=== PATIENT | female | born 1975 | race American Indian/Alaskan Native ===

== ENCOUNTER 2016-05-31 05:52 | Observation (INO) | payer BC ==
[2016-05-31 06:28] VITALS: BMI 29.2
[2016-05-31 06:30] VITALS: BP 140/92; PULSE 104; RESP 18; TEMP 98.3; O2SAT 100
[2016-05-31] MEDS ORDERED: diaZEpam 10 mg/2 ml Inj IVP ONE ×2 (07:12→07:38)
--- NOTE | 2016-05-31 07:12 | ED PDOC ---
Arrival/HPI - General Historian: Patient - History of Present Illness Time/Duration: Prior to Arrival Symptom Course: Unchanged Quality: Aching, Stabbing <Geo Reyes - Last Filed: 05/31/16 07:04> <Main Painting - Last Filed: 05/31/16 11:06> - General Chief Complaint: Back Pain Time Seen by Provider: 05/31/16 06:40 - History of Present Illness Narrative History of Present Illness (Text): 05/31/16 07:04 40 y/o female with no significant PMH presenting with complaints of left upper thoracic back pain. Patient states pain started suddenly at around 430a today. States pain awoke her from sleep. She states pain radiates distally to lumbar, buttock and lower extremities. Patient has experienced similar symptoms in the past. She was seen here in March, with similar complaints which was eventually relieved with Morphine. Patient is tearful on evaluation stating she is under a great deal of stress as her father was recently diagnosed with renal failure and her mother is recently . Patient denies headache, focal weakness, bowel or bladder incontinence, trauma or injury. (Geo Reyes) Past Medical History - Provider Review Nursing Documentation Reviewed: Yes - Past History Past History: No Previous - Cardiac Hx Cardiac Disorders: No - Pulmonary Hx Respiratory Disorders: No - Neurological Hx Neurological Disorder: No - HEENT Hx HEENT Disorder: No - Renal Hx Renal Disorder: No - Endocrine/Metabolic Hx Endocrine Disorders: No - Hematological/Oncological Hx Blood Disorders: No - Integumentary Hx Dermatological Disorder: No - Musculoskeletal/Rheumatological Hx Musculoskeletal Disorders: No - Gastrointestinal Hx Gastrointestinal Disorders: No - Genitourinary/Gynecological Hx Genitourinary Disorders: No - Psychiatric Hx Psychophysiologic Disorder: No Hx Substance Use: No - Anesthesia Hx Anesthesia: No Hx Anesthesia Reactions: No Hx Malignant Hyperthermia: No <Geo Reyes - Last Filed: 05/31/16 07:04> Family/Social History - Physician Review Nursing Documentation Reviewed: Yes Family/Social History: Neoplasm/Cancer Smoking Status: Current Some Days Smoker Hx Alcohol Use: Yes Frequency of alcohol use: Socially Hx Substance Use: No <Geo Reyes - Last Filed: 05/31/16 07:04> Allergies/Home Meds <Geo Reyes - Last Filed: 05/31/16 07:04> <Main Pain[employer] - Last Filed: 05/31/16 11:06> Allergies/Adverse Reactions: Allergies No Known Allergies Allergy (Verified 05/31/16 06:26) Review of Systems - Physician Review All systems were reviewed & negative as marked: Yes - Review of Systems Constitutional: absent: Fatigue, Fevers Eyes: Normal ENT: Normal Respiratory: absent: SOB, Cough Cardiovascular: absent: Chest Pain, Palpitations Gastrointestinal: absent: Abdominal Pain, Diarrhea, Nausea, Vomiting Musculoskeletal: Back Pain. absent: Arthralgias, Neck Pain, Myalgias Skin: absent: Rash, Pruritis Neurological: absent: Headache, Dizziness, Focal Weakness Psychiatric: Anxiety <Geo Reyes - Last Filed: 05/31/16 07:04> Physical Exam Vital Signs Reviewed: Yes Temperature: Afebrile Blood Pressure: Normal Pulse: Regular Respiratory Rate: Normal Appearance: Positive for: Well-Appearing Pain Distress: Moderate Mental Status: Positive for: Alert and Oriented X 3 - Systems Exam Head: Present: Atraumatic, Normocephalic Pupils: Present: PERRL Extroacular Muscles: Present: EOMI Conjunctiva: Present: Normal Mouth: Present: Moist Mucous Membranes Neck: Present: Normal Range of Motion. No: Meningeal Signs Respiratory/Chest: Present: Clear to Auscultation. No: Wheezes, Rales, Rhonchi Cardiovascular: Present: Regular Rate and Rhythm, Normal S1, S2 Abdomen: Present: Normal Bowel Sounds. No: Tenderness, Distention Back: Present: Normal Inspection, Other (hypertonic paraspinal musculature ). No: Midline Tenderness, Paraspinal Tenderness, Pain with Leg Raise Upper Extremity: Present: Normal Inspection. No: Cyanosis, Edema Lower Extremity: Present: Normal Inspection, NORMAL PULSES, Normal ROM. No: Edema, CALF TENDERNESS, Tenderness Neurological: Present: GCS=15, CN II-XII Intact, Speech Normal Skin: Present: Warm, Dry. No: Rashes Psychiatric: Present: Alert, Oriented x 3, Normal Insight, Normal Concentration , Anxious <Geo Reyes - Last Filed: 05/31/16 07:04> Vital Signs Temp Pulse Resp BP Pulse Ox 05/31/16 06:29 98.3 F 104 H 18 140/92 H 100 Medical Decision Making <Geo Reyes - Last Filed: 05/31/16 07:04> <Main Pain[employer] - Last Filed: 05/31/16 11:06> ED Course and Treatment: 05/31/16 07:17 40 y/o female with no significant PMH presenting with acute onset left scapular back pain radiating distally to lumbar area and lower extremities. Somatic complaints are in the setting of anxiety and emotional distress. Symptoms may be 2/2 musculoskeletal strain vs fibromyalgia vs somatization disorder vs anxiety disorder. - Valium 2.5 IV once - Toradol 30mg IV once - reassess (Geo Reyes) 05/31/16 11:05 40 yo female with back pain as described. Agree with resident history and physical, assessment and plan. -- Valium and Toradol -- Reevaluate and disposition. (Main Painting) - Medication Orders Current Medication Orders: Discontinued Medications Diazepam (Valium) 2.5 mg IVP ONCE ONE PRN Reason: Protocol Stop: 05/31/16 07:39 Last Admin: 05/31/16 08:14 Dose: 2.5 MG Behavioural Document 05/31/16 08:14 EWO (Rec: 05/31/16 08:14 [place] [id number]) Maintenance Maintenance Dose No Nonmedicinal Nonmedicinal Interventions See nurse's notes Comment Severe back spasm Behavior Behavior for Medication: Anxiety Behavior Comment Severe back spasm IVP Administration Document 05/31/16 08:14 EWO (Rec: 05/31/16 08:14 [place] [id number]) Charges for Administration # of IVP Administrations 1 Ketorolac Tromethamine (Toradol) 30 mg IVP STAT STA Stop: 05/31/16 07:39 Last Admin: 05/31/16 07:40 Dose: 30 MG IVP Administration Document 05/31/16 07:40 EWO (Rec: 05/31/16 08:13 [place] [id number]) Charges for Administration # of IVP Administrations 1 Disposition/Present on Arrival - Present on Arrival History of DVT/PE: No History of Uncontrolled Diabetes: No Urinary Catheter: No History of Decub. Ulcer: No History Surgical Site Infection Following: None <Geo Reyes - Last Filed: 05/31/16 07:04> - Present on Arrival Any Indicators Present on Arrival: No - Disposition Have Diagnosis and Disposition been Completed?: Yes Disposition Time: 09:25 Patient Plan: Discharge <Main Painting - Last Filed: 05/31/16 11:06> - Disposition Diagnosis: Back muscle spasm Disposition: HOME/ ROUTINE Condition: IMPROVED
--- NOTE | 2016-05-31 07:31 | ED PDOC ---
Physical Exam Vital Signs Temp Pulse Resp BP Pulse Ox 05/31/16 06:29 98.3 F 104 H 18 140/92 H 100 Medical Decision Making ED Course and Treatment: 05/31/16 07:20 Patient signed out to me by Dr. Barron. 40 year old female presented with upper back pain and lower back pain radiating down the lower extremities. She states she did not take anything for pain at home. Denies urinary complaints. PMD: Dr. Burch - Medication Orders Current Medication Orders: Discontinued Medications Diazepam (Valium) 2.5 mg IVP ONCE ONE PRN Reason: Protocol Stop: 05/31/16 07:39 Last Admin: 05/31/16 08:14 Dose: 2.5 MG Behavioural Document 05/31/16 08:14 EWO (Rec: 05/31/16 08:14 [place] [id number]) Maintenance Maintenance Dose No Nonmedicinal Nonmedicinal Interventions See nurse's notes Comment Severe back spasm Behavior Behavior for Medication: Anxiety Behavior Comment Severe back spasm IVP Administration Document 05/31/16 08:14 EWO (Rec: 05/31/16 08:14 [place] [id number]) Charges for Administration # of IVP Administrations 1 Ketorolac Tromethamine (Toradol) 30 mg IVP STAT STA Stop: 05/31/16 07:39 Last Admin: 05/31/16 07:40 Dose: 30 MG IVP Administration Document 05/31/16 07:40 EWO (Rec: 05/31/16 08:13 [place] [id number]) Charges for Administration # of IVP Administrations 1 ED OBSERVATION Date of observation admission: 05/31/16 Time of observation admission: 07:12 - Observation admission statement Patient is being placed in observation because:: back pain - Goals of Observation Goals of observation are:: monitor patient's response to treatments in the Emergency room - Progress Note Progress Note: 05/31/16 07:12 On initial exam patient is uncomfortable, appears to be in severe pain. 05/31/16 09:11 On reexamination, patient states she feels better and is ready to be discharged. Patient stable for discharge. Instructed patient to follow up with PMD or return to the ER if symptoms worsen. Patient agrees with plan. All questions answered. Disposition/Present on Arrival - Present on Arrival Any Indicators Present on Arrival: No History of DVT/PE: No History of Uncontrolled Diabetes: No Urinary Catheter: No History of Decub. Ulcer: No History Surgical Site Infection Following: None - Disposition Have Diagnosis and Disposition been Completed?: Yes Diagnosis: Back muscle spasm Disposition: HOME/ ROUTINE Disposition Time: 09:13 Patient Problems: Current Active Problems Problem Status Diagnosed Back muscle spasm Acute Condition: IMPROVED
== END 2016-05-31 09:13 | disposition home or self-care (01) ==
LOC: ED 05:52 → EROBSV 07:12
PROVIDERS: ADMIT Emergency Medicine; ATTEND Emergency Medicine
DX: M62.830 Muscle spasm of back (principal)
CPT/HCPCS: 96374; 96375; 99283; G0378; J1885; J3360